=== PATIENT | male | born 1950 | race Caucasian/White ===

== ENCOUNTER 2021-11-26 10:40 | Inpatient (IN) | payer MEDICARE ==
[2021-11-26] VITALS (13 sets, daily range): BP systolic 99–139; BP diastolic 49–75
[~2021-11-26] VITALS: Ht 175.3 cm; Wt 59.4 kg
[2021-11-26] MEDS ORDERED: HEPARIN for IV BOLUS 10,000 UNIT/10 ML VIAL. ONE (10:44)
[2021-11-26] MEDS ORDERED: fentaNYL PF VIAL 100 MCG/2 ML VIAL ONE (10:44)
[2021-11-26] MEDS ORDERED: BIVALIRUDIN 250 MG VIAL. IV ONE ×2 (10:44→11:30)
[2021-11-26] MEDS ORDERED: MIDAZOLAM HCL/PF 2 MG/2 ML VIAL. ONE (10:44)
[2021-11-26] MEDS ORDERED: IODIXANOL 320 MG/ML 100 ML VIAL. ONE ×2 (11:02→11:32)
[2021-11-26] MEDS ORDERED: ATROPINE 1 MG/10 ML DISP.SYRINGE. ONE (11:13)
[2021-11-26] MEDS ORDERED: CLOPIDOGREL BISULFATE 75 MG TABLET PO ONE (11:30)
[2021-11-26] MEDS ORDERED: IODIXANOL 320 MG/ML 100 ML VIAL. IART ONE (11:30)
[2021-11-26] MEDS ORDERED: fentaNYL PF VIAL 100 MCG/2 ML VIAL IV ONE (11:30)
[2021-11-26] MEDS ORDERED: NITROGLYCERIN 200 MCG/2 ML SYRINGE FOR CATH/VASC LAB. IART ONE (11:30)
[2021-11-26] MEDS ORDERED: LIDOCAINE 1% Multi-Dose 20 ML VIAL. INJ ONE (11:30)
[2021-11-26] MEDS ORDERED: MIDAZOLAM HCL/PF 2 MG/2 ML VIAL. IV ONE (11:30)
[2021-11-26] MEDS ORDERED: LIDOCAINE 1% Multi-Dose 20 ML VIAL. ONE (11:32)
[2021-11-26] MEDS ORDERED: CLOPIDOGREL BISULFATE 75 MG TABLET ONE (11:34)
--- NOTE | 2021-11-26 11:42 | PDOC2 ---
CONSULT Date of Consult Date of Consult DATE: 11/26/21 TIME: 11:42 Reason for Consult Reason for Consult: Acute STEMI Referring Physician Referring Physician: Dr. Smith Identification/Chief Complaint Chief Complaint Chest pain Source Source: Chart review, Patient History of Present Illness Reason for Visit: 71-year-old male without any previous cardiac history initially presented to [facility] ED with chest pain starting about 45 minutes prior to arrival. He described the pain as pressure-like sensation radiating to back and left arm associated with diaphoresis and nausea. Upon further interrogation patient and his stated that the chest pain was happening intermittently for the last 3 days but has been continuous prior to arrival. He denied any orthopnea/PND, palpitations or syncope. EKG showed acute anterior wall ST elevation myocardial infarction. Code STEMI was activated and patient was transferred emergently to [facility] for cardiac catheterization and primary PCI/stent placement. Past Medical History Past Medical History Hypertension Hyperlipidemia GERD Osteoarthritis Glaucoma Past Surgical History Past Surgical History: Hernia Repair Family History Family History Hypertension Social History Social History Patient has 50 pack years of smoking history and denied any alcohol or drug use Current Medications Current Medications Current Medications Fentanyl Citrate (Fentanyl 2ml Vial) 100 mcg STK-MED ONCE .ROUTE ; Start 11/26/21 at 10:44; Stop 11/26/21 at 10:44; Status DC Midazolam HCl (Versed) 2 mg STK-MED ONCE .ROUTE ; Start 11/26/21 at 10:44; Stop 11/26/21 at 10:45; Status DC Bivalirudin (Angiomax) 250 mg STK-MED ONCE IV ; Start 11/26/21 at 10:44; Stop 11/26/21 at 10:45; Status DC Heparin Sodium (Porcine) (Heparin Sodium) 10,000 unit STK-MED ONCE .ROUTE ; Start 11/26/21 at 10:44; Stop 11/26/21 at 10:45; Status DC Iodixanol (Visipaque 320) 100 ml STK-MED ONCE .ROUTE ; Start 11/26/21 at 11:02; Stop 11/26/21 at 11:02; Status DC Atropine Sulfate (ATROPINE 1mg SYRINGE) 1 mg STK-MED ONCE .ROUTE ; Start 11/26/21 at 11:13; Stop 11/26/21 at 11:13; Status DC Heparin Sodium/ Sodium Chloride (HEPARIN for ARTERIAL LINE FLUSH) 1,000 unit 1X ONCE IART Last administered on 11/26/21at 11:29; Start 11/26/21 at 11:30; Stop 11/26/21 at 11:31; Status DC Midazolam HCl (Versed) 2 mg 1X ONCE IV Last administered on 11/26/21at 11:28; Start 11/26/21 at 11:30; Stop 11/26/21 at 11:31; Status DC Fentanyl Citrate (Fentanyl 2ml Vial) 100 mcg 1X ONCE IV Last administered on 11/26/21at 11:29; Start 11/26/21 at 11:30; Stop 11/26/21 at 11:32; Status DC Iodixanol (Visipaque 320) 100 ml 1X ONCE IART Last administered on 11/26/21at 11:27; Start 11/26/21 at 11:30; Stop 11/26/21 at 11:32; Status DC Bivalirudin (Angiomax) 250 mg 1X ONCE IV Last administered on 11/26/21at 11:28; Start 11/26/21 at 11:30; Stop 11/26/21 at 11:32; Status DC Clopidogrel Bisulfate (Plavix) 600 mg 1X ONCE PO ; Start 11/26/21 at 11:30; Stop 11/26/21 at 11:32; Status DC Lidocaine HCl (Lidocaine 1% 20ml Vial) 20 ml 1X ONCE INJ Last administered on 11/26/21at 11:29; Start 11/26/21 at 11:30; Stop 11/26/21 at 11:32; Status DC Nitroglycerin (Nitroglycerin) 200 mcg 1X ONCE IART ; Start 11/26/21 at 11:30; Stop 11/26/21 at 11:32; Status DC Info (CONTRAST GIVEN -- Rx MONITORING) 1 each PRN DAILY PRN MC SEE COMMENTS; Start 11/26/21 at 11:45; Stop 11/28/21 at 11:44 Iodixanol (Visipaque 320) 100 ml STK-MED ONCE .ROUTE ; Start 11/26/21 at 11:32; Stop 11/26/21 at 11:32; Status DC Lidocaine HCl (Lidocaine 1% 20ml Vial) 20 ml STK-MED ONCE .ROUTE ; Start 11/26/21 at 11:32; Stop 11/26/21 at 11:32; Status DC Heparin Sodium/ Sodium Chloride 500 ml @ As Directed STK-MED ONCE .ROUTE ; Start 11/26/21 at 11:32; Stop 11/26/21 at 11:32; Status DC Clopidogrel Bisulfate (Plavix) 75 mg STK-MED ONCE .ROUTE ; Start 11/26/21 at 11:34; Stop 11/26/21 at 11:35; Status DC Allergies Allergies: Coded Allergies: No Known Drug Allergies (Unverified , 11/26/21) ROS PSYCHOLOGICAL ROS: No: Hallucinations Eyes: No Loss of vision HEENT: No: Epistaxis ENDOCRINE: No: Palpitations Cardiovascular: yes Chest Pain Gastrointestinal: Yes Nausea Genitourinary: No Hematuria Neurological: No Seizures Skin: No Rash Physical Exam General: Alert, mild distress HEENT: Atraumatic Lungs: Clear to auscultation Heart: Regular rate Abdomen: Soft Extremities: No edema Psych/Mental Status: Mood NL Vitals VITALS Vital Signs Date Time Temp Pulse Resp B/P (MAP) Pulse Ox O2 Delivery O2 Flow Rate FiO2 11/26/21 11:32 45 24 96 Nasal Cannula 2.0 Assessment/Plan Assessment/Plan 1. Acute anterior wall ST elevation myocardial infarction with ongoing chest pain. Patient was given aspirin, heparin and taken emergently to cardiac [facility]. Coronary angiography showed critical 99% stenosis involving left anterior descending artery that was successfully treated with drug-eluting stent. He also has residual 70% bifurcation stenosis involving the distal RCA that will be intervened upon at a later date in a staged fashion in 2 weeks. LVEF on left ventriculography was 55% with mild hypokinesis of distal anterior wall and the apical wall. Patient was chest pain-free at the end of procedure. Start beta- blockers, Plavix and statins. We will refer patient for cardiac rehabilitation upon discharge. 2. Hypertension: Controlled 3. Hyperlipidemia: Continue statin therapy 4. Tobacco abuse: Advised on smoking cessation Thank you for your consultation Total critical care time spent evaluating and managing patient and discussing with family 45 minutes. GINA HAMILTON MD Nov 26, 2021 11:42
--- NOTE | 2021-11-26 11:42 | PDOC ---
MODERATE SEDATION ASSESSMENT RISKS/ALTERNATIVES Risks/Alternatives Risks and alternatives of this type of sedation and procedure discussed with: RISK/ALTERNATIVES: Patient H & P ON CHART H & P H & P on chart and reviewed for co-morbid conditions and appropriate labs. H&P ON CHART: Yes STATUS PREG STATUS ASSESSED: N/A MEDS/ALLERGIES REVIEWED Meds/Allergies Reviewed Medications and Allergies including time and route of recently administered narcotics and sedatives. MEDS/ALLERGIES REVIEWED: Yes ASA RATING ASA RATING: III AIRWAY ASSESSMENT Airway Assessment Airway patency, oral function limitations, presence of caps, crowns, dentures, partials, and ability to extend neck assessed. AIRWAY ASSESSMENT: Yes MALLAMPATI SCORE MALLAMPATI SCORE: II PRE-SEDATION ASSESSMENT PRE-SEDATION ASSESSMENT: Yes GINA HAMILTON MD Nov 26, 2021 11:42
[2021-11-26] MEDS ORDERED: ACETAMINOPHEN 325 MG TABLET. PO PRN (11:45)
[2021-11-26] MEDS: IV 1/2 NORMAL SALINE 1,000 ML IV SCH ×2 (11:45→23:25)
[2021-11-26] MEDS ORDERED: CONTRAST GIVEN. MC PRN (11:45)
[2021-11-26] MEDS ORDERED: NITROGLYCERIN SUBLINGUAL 0.4 MG BOTTLE OF 25. SL PRN (11:45)
--- NOTE | 2021-11-26 11:57 | CARD ---
MR#: [id number] Date of Study: 11/26/2021 Ordering Physician: GINA LAM, Referring Physician: GINA LAM, Tech: RT Alhaji(R) APPROVED REPORT Technologist: RT Alhaji(R) Nurse: Kavya Whiting RN Procedure(s) performed: 1. Left heart catheterization, selective coronary angiography and left ventr iculography 2. Successful PCI/drug-eluting stent placement to the left anterior descending artery fluoro time: 15.9min dose:[id number] contrast:201cc moderate sedation: 50 MINS INDICATION The indication(s) include : Acute anterior wall ST elevation myocardial infarction. [facility] Clinical Frailty Scale [facility] Clinical Frailty Scale: Moderately Frail Heart Failure Heart Failure: No CASE TECHNIQUE IV conscious sedation was used throughout procedure with appropriate monitoring and was performed in the presence of a registered nurse who was an independent trained observer other than the physician p erforming the procedure. During this case, Fluoroscopy and low osmolar contrast were used for imaging . Specimen(s) Removed: No Estimated Blood loss: 15 cc's. PROCEDURE NARRATIVE After explaining the risk, benefits and alternative options, informed consent was obtained from patie nt. Patient was brought to the cardiac [facility] and his right groin was prepped and draped in the us ual fashion. 20 cc of 2% lidocaine was infiltrated into the skin and subcutaneous tissues for local anesthesia. Arterial access was obtained in the right common femoral artery and a 6 [place] sheath wa s inserted. 6 [place] JL 4 and 6 and JR4 catheters were used to perform selective angiography of the left and right coronary arteries. 6 [place] pigtail catheter was used to perform left ventriculograph y. FINDINGS 1. Hemodynamics: Left ventricular end-diastolic pressure 18 mmHg. No pullback gradient across the a ortic valve. 2. Left ventriculography: Mild hypokinesis of the distal anterior wall and the apical wall with ejec tion fraction estimated at 55%. No significant mitral regurgitation seen. 3. Coronary angiography: a. The left main coronary artery arose from the left sinus of Valsalva, gave rise to the left anteri or descending and left circumflex arteries and did not show any significant stenosis. b. The left anterior descending artery showed critical 99% stenosis in the midsegment. c. The left circumflex artery did not show any significant stenosis. d. The right coronary artery was a large and dominant vessel arising from the right sinus of Valsalv a that showed 70% bifurcation lesion involving the distal segment. INTERVENTION The left main coronary artery was engaged with a 6 [place]ian XB 3.5 guide catheter. The stenosis in the mid segment of the left anterior descending artery was crossed with a 0.014 inch imgfave guid ewire. This was predilated with 2.5 x 12 mm Euphora balloon followed by 2.5 x 15 mm NC Euphora nonco mpliant balloon. The lesion was then successfully treated with a 2.5 x 18 mm resolute [place] drug-elut ing stent. Follow-up angiography showed resolution of the stenosis to 0% with CATHY-3 distal flow. P atient tolerated the procedure well. Hemostasis in the right groin was achieved using Angio-Seal. T here were no immediate complications. CATHY Flow CATHY Flow (Pre-Intervention): CATHY-1 CATHY Flow (Post-Intervention): CATHY-3 Conclusion 1. Two-vessel coronary artery disease involving the left anterior descending artery (culprit vessel) and right coronary artery as described above 2. Successful PCI/drug-eluting stent placement to the left anterior descending artery 3. Mild hypokinesis of the distal anterior wall and the apical wall with ejection fraction estimated at 55%. Recommendations 1. Aspirin 325 mg daily for 1 month followed by 81 mg daily 2. Plavix 75 mg daily 3. Cardiovascular risk factor modification Signed by : Gina Lam, Electronically Approved : 11/26/2021 11:56:46
[2021-11-26] MEDS: CLOPIDOGREL BISULFATE 75 MG TABLET PO SCH (12:00)
[2021-11-26] MEDS: CARVEDILOL 6.25 MG TABLET. PO SCH ×2 (12:00→17:00)
[2021-11-26] MEDS: ASPIRIN ENTERIC COATED 325 MG TABLET.DR. PO SCH (12:00)
[2021-11-26] MEDS ORDERED: NITROGLYCERIN 200 MCG/2 ML SYRINGE FOR CATH/VASC LAB. ONE (12:32)
[2021-11-26] MEDS: MORPHINE SULFATE 2 MG/ML INJ. IVP PRN ×4 (13:34→23:25)
--- NOTE | 2021-11-26 18:30 | PDOC1 ---
History and Physical Date of Admission Date of Admission DATE: 11/26/21 TIME: 18:27 History of Present Illness History of Present Illness MR. Caruso is a 71-year-old male with acute chest pain today, Went to [facility] ED with sudden and severe chest pain with pressure. He has had some pain for a few days but nothing like this, severe 10/10. He has GERD history and this was different. He was sweaty and nauseated and that is all imrpoved, he has soem pain across left chest at times now, 5/10 for short times. Taken to the laborer [facility] here, STEMI, PCI stent placed Dr. Patino. Past Medical History Cardiovascular: HTN GI: GERD Past Surgical History Past Surgical History: Hernia Repair Family History Family History: No Significant Social History ALCOHOL: rare Drugs: None Current Medications Current Medications Current Medications Fentanyl Citrate (Fentanyl 2ml Vial) 100 mcg STK-MED ONCE .ROUTE ; Start 11/26/21 at 10:44; Stop 11/26/21 at 10:44; Status DC Midazolam HCl (Versed) 2 mg STK-MED ONCE .ROUTE ; Start 11/26/21 at 10:44; Stop 11/26/21 at 10:45; Status DC Bivalirudin (Angiomax) 250 mg STK-MED ONCE IV ; Start 11/26/21 at 10:44; Stop 11/26/21 at 10:45; Status DC Heparin Sodium (Porcine) (Heparin Sodium) 10,000 unit STK-MED ONCE .ROUTE ; Start 11/26/21 at 10:44; Stop 11/26/21 at 10:45; Status DC Iodixanol (Visipaque 320) 100 ml STK-MED ONCE .ROUTE ; Start 11/26/21 at 11:02; Stop 11/26/21 at 11:02; Status DC Atropine Sulfate (ATROPINE 1mg SYRINGE) 1 mg STK-MED ONCE .ROUTE ; Start 11/26/21 at 11:13; Stop 11/26/21 at 11:13; Status DC Heparin Sodium/ Sodium Chloride (HEPARIN for ARTERIAL LINE FLUSH) 1,000 unit 1X ONCE IART Last administered on 11/26/21at 11:29; Start 11/26/21 at 11:30; Stop 11/26/21 at 11:31; Status DC Midazolam HCl (Versed) 2 mg 1X ONCE IV Last administered on 11/26/21at 11:28; Start 11/26/21 at 11:30; Stop 11/26/21 at 11:31; Status DC Fentanyl Citrate (Fentanyl 2ml Vial) 100 mcg 1X ONCE IV Last administered on 11/26/21at 11:29; Start 11/26/21 at 11:30; Stop 11/26/21 at 11:32; Status DC Iodixanol (Visipaque 320) 100 ml 1X ONCE IART Last administered on 11/26/21at 11:27; Start 11/26/21 at 11:30; Stop 11/26/21 at 11:32; Status DC Bivalirudin (Angiomax) 250 mg 1X ONCE IV Last administered on 11/26/21at 11:28; Start 11/26/21 at 11:30; Stop 11/26/21 at 11:32; Status DC Clopidogrel Bisulfate (Plavix) 600 mg 1X ONCE PO Last administered on 11/26/21at 11:30; Start 11/26/21 at 11:30; Stop 11/26/21 at 11:32; Status DC Lidocaine HCl (Lidocaine 1% 20ml Vial) 20 ml 1X ONCE INJ Last administered on 11/26/21at 11:29; Start 11/26/21 at 11:30; Stop 11/26/21 at 11:32; Status DC Nitroglycerin (Nitroglycerin) 200 mcg 1X ONCE IART Last administered on 11/26/21at 11:00; Start 11/26/21 at 11:30; Stop 11/26/21 at 11:32; Status DC Info (CONTRAST GIVEN -- Rx MONITORING) 1 each PRN DAILY PRN MC SEE COMMENTS; Start 11/26/21 at 11:45; Stop 11/28/21 at 11:44 Iodixanol (Visipaque 320) 100 ml STK-MED ONCE .ROUTE ; Start 11/26/21 at 11:32; Stop 11/26/21 at 11:32; Status DC Lidocaine HCl (Lidocaine 1% 20ml Vial) 20 ml STK-MED ONCE .ROUTE ; Start 11/26/21 at 11:32; Stop 11/26/21 at 11:32; Status DC Heparin Sodium/ Sodium Chloride 500 ml @ As Directed STK-MED ONCE .ROUTE ; Start 11/26/21 at 11:32; Stop 11/26/21 at 11:32; Status DC Clopidogrel Bisulfate (Plavix) 75 mg STK-MED ONCE .ROUTE ; Start 11/26/21 at 11:34; Stop 11/26/21 at 11:35; Status DC Sodium Chloride 1,000 ml @ 75 mls/hr [id number] IV ; Start 11/26/21 at 11:45 Aspirin (Ecotrin) 325 mg DAILYWBKFT PO ; Start 11/26/21 at 12:00 Clopidogrel Bisulfate (Plavix) 75 mg DAILYWBKFT PO ; Start 11/26/21 at 12:00 Carvedilol (Coreg) 6.25 mg BIDWMEALS PO ; Start 11/26/21 at 12:00 Atorvastatin Calcium (Lipitor) 40 mg QHS PO ; Start 11/26/21 at 21:00 Acetaminophen (Tylenol) 650 mg PRN Q6HRS PRN PO MILD PAIN / TEMP > 100.3'F Last administered on 11/26/21at 12:13; Start 11/26/21 at 11:45 Nitroglycerin (Nitrostat) 0.4 mg PRN Q5MIN PRN SL CHEST PAIN; Start 11/26/21 at 11:45 Nitroglycerin (Nitroglycerin) 200 mcg STK-MED ONCE .ROUTE ; Start 11/26/21 at 12:32; Stop 11/26/21 at 12:32; Status DC Morphine Sulfate (Morphine Sulfate) 2 mg PRN Q2HR PRN IVP MODERATE TO SEVERE PAIN Last administered on 11/26/21at 16:08; Start 11/26/21 at 13:15 Allergies Allergies: Coded Allergies: No Known Drug Allergies (Unverified , 11/26/21) ROS Review of System hard of hearing General: YES: Chills PSYCHOLOGICAL ROS: No: Anxiety, Behavioral Disorder, Concentration difficultie, Decreased libido, Depression, Disorientation, Hallucinations, Hostility, Irritablity, Memory difficulties, Mood Swings, Obsessive thoughts, Physical abuse, Sexual abuse, Sleep disturbances, Suicidal ideation, Other Eyes: No Blurry vision, No Decreased vision, No Double vision, No Dry eyes, No Excessive tearing, No Eye Pain, No Itchy Eyes, No Loss of vision, No Photo phobia, No Scotomata, No Uses contacts, No Uses glasses, No Other HEENT: No: Heacaches, Visual Changes, Hearing change, Nasal congestion, Nasal discharge, Oral lesions, Sinus pain, Sore Throat, Epistaxis, Sneezing, Snoring, Tinnitus, Vertigo, Vocal changes, Other Respiratory: No: Cough, Hemoptysis, Orthopnea, Pleuritic Pain, Shortness of breath, SOB with excertion, Sputum Changes, Stridor, Tachypnea, Wheezing, Other Cardiovascular: yes Chest Pain Gastrointestinal: No Nausea, No Vomiting, No Abdominal Pain, No Diarrhea, No Constipation, No Melena, No Hematochezia, No Other Genitourinary: No Dysuria, No Frequency, No Incontinence, No Hematuria, No Rete ntion, No Discharge, No Urgency, No Pain, No Flank Pain, No Other, No , No , No , No , No , No , No Musculoskeletal: No Gait Disturbance, No Joint Pain, No Joint Stiffness, No Joint Swelling, No Muscle Pain, No Muscular Weakness, No Pain In:, No Swelling In:, No Other Neurological: No Behavorial Changes, No Bowel/Bladder ControlChng, No Confusion, No Dizziness, No Gait Disturbance, No Headaches, No Impaired Coord/balance, No Memory Loss, No Numbness/Tingling, No Seizures, No Speech Problems, No Tremors, No Visual Changes, No Weakness, No Other Skin: No Dry Skin, No Eczema, No Hair Changes, No Lumps, No Mole Changes, No Mottling, No Nail Changes, No Pruritus, No Rash, No Skin Lesion Changes, No Other, No Acne Physical Exam General: Alert, Cooperative, No acute distress HEENT: Atraumatic, Mucous membr. moist/pink Lungs: Clear to auscultation, Normal air movement Heart: S1S2, no gallops, no murmurs Abdomen: Soft Extremities: No clubbing, No edema Skin: No rashes, No breakdown Neuro: Normal tone, Sensation intact Psych/Mental Status: Mood NL Vitals Vitals Vital Signs Date Time Temp Pulse Resp B/P (MAP) Pulse Ox O2 Delivery O2 Flow Rate FiO2 11/26/21 16:08 18 99 Room Air 11/26/21 14:00 48 117/56 (76) 11/26/21 11:45 97.5 97.5 11/26/21 11:32 2.0 VTE Prophylaxis Ordered VTE Prophylaxis Devices: No VTE Pharmacological Prophylaxi: Yes Assessment/Plan Assessment/Plan STEMI acute systolic CHF angina admit to ICU, CV tele full anywa Hypertension Hyperlipidemia GERD Osteoarthritis Glaucoma tobacco use disorder Justifications for Admission Other Justification SHANI RABAGO MD Nov 26, 2021 18:30
--- NOTE | 2021-11-26 18:30 | NUR ---
PT ADMITTED FROM [facility] AT 1145, GROIN CHECKED, PT ON BEDREST FOR ORDERED TIME. ASA, PLAVIX HELD D/T ALREADY BEING ADMINISTERED TODAY. COREG HELD D/T HR AND BLOOD PRESSURE UPON ARRIVAL.
[2021-11-26] MEDS ORDERED: NICOTINE 14MG PATCH. TD PRN (18:45)
[2021-11-26] MEDS: ATORVASTATIN CALCIUM 40 MG TABLET. PO SCH (21:00)
[2021-11-27] VITALS (15 sets, daily range): BP systolic 97–134; BP diastolic 55–73
[2021-11-27 06:00] LABS: ALBUMIN 3.4 g/dL (3.4-5.0); ALBUMIN/GLOBULIN RATIO 1.4 (1.0-1.7); CALCIUM 9.2 mg/dL (8.5-10.1); CREATININE 0.8 mg/dL (0.7-1.3); GFR 95.3; POTASSIUM 3.8 mmol/L (3.5-5.1); TOTAL BILIRUBIN 0.5 mg/dL (0.2-1.0); TOTAL PROTEIN 5.9 g/dL (6.4-8.2)
[2021-11-27 06:03] LABS: CHOLESTEROL/HDL RATIO 2.8
[2021-11-27 06:08] LABS: BASO % 0 % (0-3); EOS # 0.1 x10^3/uL (0.0-0.7); EOS % 1 % (0-3); HEMATOCRIT 41.1 % (39.0-53.0); HEMOGLOBIN 13.4 g/dL (13.0-17.5); LYMPH # 1.2 x10^3/uL (1.0-4.8); LYMPH % 12 % (24-48); MEAN CORPUSCULAR HEMOGLOBIN 30 pg (25-35); MEAN CORPUSCULAR HGB CONC 33 g/dL (31-37); MEAN CORPUSCULAR VOLUME 93 fL (79-100); MONO # 0.8 x10^3/uL (0.0-1.1); MONO % 9 % (0-9); NEUT # 7.6 x10^3/uL (1.8-7.7); NEUT % 78 % (31-73); PLATELET COUNT 116 x10^3/uL (140-400); RED BLOOD COUNT 4.41 x10^6/uL (4.30-5.70); RED CELL DISTRIBUTION WIDTH 14.2 % (11.5-14.5); WHITE BLOOD COUNT 9.7 x10^3/uL (4.0-11.0)
[2021-11-27] MEDS: CLOPIDOGREL BISULFATE 75 MG TABLET PO SCH (09:10)
[2021-11-27] MEDS: ASPIRIN ENTERIC COATED 325 MG TABLET.DR. PO SCH (09:10)
[2021-11-27] MEDS: CARVEDILOL 6.25 MG TABLET. PO SCH ×2 (09:11→20:00)
--- NOTE | 2021-11-27 09:15 | CARD ---
MR#: [id number] Date of Study: 11/26/2021 Ordering Physician: GINA LAM, Referring Physician: Yesenia HAMILTON: Myron Pruett [facility] APPROVED REPORT EXAM: Two-dimensional and M-mode echocardiogram with Doppler and color Doppler. Other Information Quality : FairHR: 48bpm Rhythm : Bradycardia INDICATION Non STEMI RISK FACTORS Hypertension Hyperlipidemia Smoking 2D DIMENSIONS Left Atrium(2D)4.5 (1.6-4.0cm)IVSd0.8 (0.7-1.1cm) Aortic Root(2D)3.3 (2.0-3.7cm)LVDd4.3 (3.9-5.9cm) LVOT Diameter2.3 (1.8-2.4cm)PWd0.8 (0.7-1.1cm) LA Rbjpzm72 (18-58mL)LVDs2.0 (2.5-4.0cm) FS (%) 53.0 %SV71.5 ml LVEF(%)84.2 (>50%) Aortic Valve AoV Peak Zi.118.9cm/sAoV VTI27.7cm AO Peak GR.5.7mmHgLVOT Peak Zi.113.8cm/s AO Mean GR.3mmHgAVA (VMAX)4.07cm2 Mitral Valve MV E Bttijbms69.1cm/sMV DECEL [id number] MV A Ohjpsauz90.5cm/sE/A Ratio1.9 Pulmonary Valve PV Peak Zuwmrdlw01.3cm/s Tricuspid Valve TR P. Tlevewkc876ay/sTR Peak Gr.26mmHg Pulmonary Vein S1 Kaglmpfj06.2cm/sD2 Zbpkoqtd40.9cm/s LEFT VENTRICLE The left ventricle is normal size. There is normal left ventricular wall thickness. Hypokinesis of mi d to distal anteroseptal wall and apical wall. The ejection fraction is estimated at 50 to 55%. Trans mitral Doppler flow pattern is Grade II-pseudonormal filling dynamics. No left ventricle thrombus not ed on this study. There is no ventricular septal defect visualized. There is no left ventricular aneu rysm. There is no mass noted in the left ventricle. RIGHT VENTRICLE The right ventricle is normal size. There is normal right ventricular wall thickness. The right ventr icular systolic function is normal. ATRIA The left atrium is mildly dilated. The right atrium size is normal. The interatrial septum is intact with no evidence for an atrial septal defect or patent foramen ovale as noted on 2-D or Doppler imagi ng. AORTIC VALVE The aortic valve is normal in structure and function. Doppler and Color Flow revealed no significant aortic regurgitation. There is no significant aortic valvular stenosis. There is no aortic valvular v egetation. MITRAL VALVE The mitral valve is normal in structure and function. There is no evidence of mitral valve prolapse. There is no mitral valve stenosis. Doppler and Color-flow revealed mild mitral regurgitation. TRICUSPID VALVE The tricuspid valve is normal in structure and function. Doppler and Color Flow revealed trace tricus pid regurgitation. There is no tricuspid valve prolapse or vegetation. There is no tricuspid valve st enosis. PULMONIC VALVE The pulmonary valve is normal in structure and function. Doppler and Color Flow revealed no pulmonic valvular regurgitation. There is no pulmonic valvular stenosis. GREAT VESSELS The aortic root is normal in size. The ascending aorta is normal in size. The pulmonary artery is nor mal. The IVC is not well seen. Limited sub xyphoid views. PERICARDIAL EFFUSION There is no pleural effusion. There is no evidence of significant pericardial effusion. Critical Notification Critical Value: No <Conclusion> Hypokinesis of mid to distal anteroseptal wall and apical wall. The ejection fraction is estimated at 50 to 55%. Transmitral Doppler flow pattern is Grade II-pseudonormal filling dynamics. Mild mitral regurgitation. Trace tricuspid regurgitation. There is no evidence of significant pericardial effusion. Signed by : Gina Lam, Electronically Approved : 11/27/2021 09:15:08
--- NOTE | 2021-11-27 11:20 | PDOC ---
[facility] PROGRESS NOTE Date of Service DOS: DATE: 11/27/21 TIME: 11:17 Chief Complaint Chief Complaint Resolving acute [place] Status post cardiac catheterization with stent to the LAD RCA occlusion awaiting further stenting in a couple weeks History of Present Illness History of Present Illness 11/27/2021 Patient seen and examined Discussed with RN Chart reviewed He had successful stenting of the LAD yesterday The plan is to do the right coronary in a couple of weeks Patient would like to go home I will put tentative discharge orders in if cardiology agrees Vitals/I&O Vitals/I&O: Vital Signs Date Time Temp Pulse Resp B/P (MAP) Pulse Ox O2 Delivery O2 Flow Rate FiO2 11/27/21 09:11 62 119/70 11/27/21 06:00 16 98 Nasal Cannula 2.0 11/27/21 04:00 97.8 97.8 I & O 11/26/21 11/26/21 11/27/21 15:00 23:00 07:00 Intake Total 1150 ml 1260 ml Output Total 850 ml 700 ml Balance 300 ml 560 ml Physical Exam General: Alert, Cooperative, No acute distress Heart: Regular rate Abdomen: Soft Extremities: No clubbing, No edema Skin: No rashes, No breakdown Labs Labs: Laboratory Tests Test 11/27/21 04:45 White Blood Count 9.7 x10^3/uL (4.0-11.0) Red Blood Count 4.41 x10^6/uL (4.30-5.70) Hemoglobin 13.4 g/dL (13.0-17.5) Hematocrit 41.1 % (39.0-53.0) Mean Corpuscular Volume 93 fL (79-100) Mean Corpuscular Hemoglobin 30 pg (25-35) Mean Corpuscular Hemoglobin Concent 33 g/dL (31-37) Red Cell Distribution Width 14.2 % (11.5-14.5) Platelet Count 116 x10^3/uL (140-400) Neutrophils (%) (Auto) 78 % (31-73) Lymphocytes (%) (Auto) 12 % (24-48) Monocytes (%) (Auto) 9 % (0-9) Eosinophils (%) (Auto) 1 % (0-3) Basophils (%) (Auto) 0 % (0-3) Neutrophils # (Auto) 7.6 x10^3/uL (1.8-7.7) Lymphocytes # (Auto) 1.2 x10^3/uL (1.0-4.8) Monocytes # (Auto) 0.8 x10^3/uL (0.0-1.1) Eosinophils # (Auto) 0.1 x10^3/uL (0.0-0.7) Basophils # (Auto) 0.0 x10^3/uL (0.0-0.2) Sodium Level 139 mmol/L (136-145) Potassium Level 3.8 mmol/L (3.5-5.1) Chloride Level 105 mmol/L (98-107) Carbon Dioxide Level 27 mmol/L (21-32) Anion Gap 7 (6-14) Blood Urea Nitrogen 19 mg/dL (8-26) Creatinine 0.8 mg/dL (0.7-1.3) Estimated GFR (Cockcroft-Gault) 95.3 BUN/Creatinine Ratio 24 (6-20) Glucose Level 105 mg/dL (70-99) Calcium Level 9.2 mg/dL (8.5-10.1) Total Bilirubin 0.5 mg/dL (0.2-1.0) Aspartate Amino Transf (AST/SGOT) 152 U/L (15-37) Alanine Aminotransferase (ALT/SGPT) 43 U/L (16-63) Alkaline Phosphatase 51 U/L (46-116) Total Protein 5.9 g/dL (6.4-8.2) Albumin 3.4 g/dL (3.4-5.0) Albumin/Globulin Ratio 1.4 (1.0-1.7) Triglycerides Level 48 mg/dL (0-150) Cholesterol Level 120 mg/dL (0-200) LDL Cholesterol, Calculated 67 mg/dL (0-100) VLDL Cholesterol, Calculated 10 mg/dL (0-40) Non-HDL Cholesterol Calculated 77 mg/dL (0-129) HDL Cholesterol 43 mg/dL (40-60) Cholesterol/HDL Ratio 2.8 Assessment and Plan Assessmemt and Plan Resolving acute VT Status post cardiac catheterization with stent to the LAD RCA occlusion awaiting further stenting in a couple weeks Plan Hope to discharge this afternoon if cardiology agrees For now continue cardiac cocktail Home meds DVT prophylaxis Full code He is going to return in 2 weeks for another stent to the RCA Comment Review of Relevant I have reviewed the following items jose (where applicable) has been applied. Medications: Current Medications Medications (Trade) Dose Ordered Sig/Leda Route PRN Reason Start Time Stop Time Status Last Admin Dose Admin Heparin Sodium/ Sodium Chloride (HEPARIN for ARTERIAL LINE FLUSH) 1,000 unit 1X ONCE IART 11/26/21 11:30 11/26/21 11:31 DC 11/26/21 11:29 Midazolam HCl (Versed) 2 mg 1X ONCE IV 11/26/21 11:30 11/26/21 11:31 DC 11/26/21 11:28 Fentanyl Citrate (Fentanyl 2ml Vial) 100 mcg 1X ONCE IV 11/26/21 11:30 11/26/21 11:32 DC 11/26/21 11:29 Iodixanol (Visipaque 320) 100 ml 1X ONCE IART 11/26/21 11:30 11/26/21 11:32 DC 11/26/21 11:27 Bivalirudin (Angiomax) 250 mg 1X ONCE IV 11/26/21 11:30 11/26/21 11:32 DC 11/26/21 11:28 Clopidogrel Bisulfate (Plavix) 600 mg 1X ONCE PO 11/26/21 11:30 11/26/21 11:32 DC 11/26/21 11:30 Lidocaine HCl (Lidocaine 1% 20ml Vial) 20 ml 1X ONCE INJ 11/26/21 11:30 11/26/21 11:32 DC 11/26/21 11:29 Nitroglycerin (Nitroglycerin) 200 mcg 1X ONCE IART 11/26/21 11:30 11/26/21 11:32 DC 11/26/21 11:00 Sodium Chloride 1,000 ml @ 75 mls/hr [id number] IV 11/26/21 11:45 11/26/21 23:25 Aspirin (Ecotrin) 325 mg DAILYWBKFT PO 11/26/21 12:00 11/27/21 09:10 Clopidogrel Bisulfate (Plavix) 75 mg DAILYWBKFT PO 11/26/21 12:00 11/27/21 09:10 Carvedilol (Coreg) 6.25 mg BIDWMEALS PO 11/26/21 12:00 11/27/21 09:11 Acetaminophen (Tylenol) 650 mg PRN Q6HRS PRN PO MILD PAIN / TEMP > 100.3'F 11/26/21 11:45 11/26/21 12:13 Morphine Sulfate (Morphine Sulfate) 2 mg PRN Q2HR PRN IVP MODERATE TO SEVERE PAIN 11/26/21 13:15 11/26/21 23:25 Justifications for Admission Other Justification CHIQUITA CORONA III DO Nov 27, 2021 11:20
[2021-11-27] MEDS ORDERED: CARV6.2511 PO (11:23)
[2021-11-27] MEDS ORDERED: NITR0.4T24 SL (11:23)
[2021-11-27] MEDS ORDERED: CLOP75TA PO (11:23)
[2021-11-27] MEDS ORDERED: ATOR40TA59 PO (11:23)
--- NOTE | 2021-11-27 11:33 | NUR ---
SS following for discharge planning. SS reviewed pt chart and discussed with pt RN. Pt is from home and is currently requiring oxygen at two liters nasal canula. Pt had heart cath on 11/26/2021. Cardiology following. SS will continue to follow for discharge planning.
[2021-11-27] MEDS: ATORVASTATIN CALCIUM 40 MG TABLET. PO SCH (21:11)
--- NOTE | 2021-11-27 22:54 | PDOC ---
PROGRESS NOTES Date of Service: DATE: 11/27/21 TIME: 22:54 Subjective Subjective Feeling better. Denied any chest pain. Objective Objective Vital Signs Date Time Temp Pulse Resp B/P (MAP) Pulse Ox O2 Delivery O2 Flow Rate FiO2 11/27/21 20:00 98.3 64 18 97/58 (71) 93 Room Air 98.3 11/27/21 12:00 2.0 Intake and Output 11/27/21 07:00 Intake Total 2410 ml Output Total 1850 ml Balance 560 ml Intake Oral 760 ml IV Total 1650 ml Output Urine Total 1850 ml Physical Exam Abdomen: Soft Heart: Regular rate Extremities: No clubbing, No edema General: Alert, Cooperative, No acute distress HEENT: Atraumatic, Mucous membr. moist/pink Lungs: Clear to auscultation, Normal air movement Neuro: Normal tone, Sensation intact Psych/Mental Status: Mood NL Skin: No rashes, No breakdown Assessment Assessment 1. Acute anterior wall ST elevation myocardial infarction. Coronary angiography showed critical 99% stenosis involving left anterior descending artery that was successfully treated with drug-eluting stent. He also has residual 70% bifurcation stenosis involving the distal RCA that will be interven ed upon at a later date in a staged fashion in 2 weeks. LVEF on left ventriculography was 55% with mild hypokinesis of distal anterior wall and the apical wall. Patient was chest pain-free at the end of procedure. Start beta- blockers, Plavix and statins. We will refer patient for cardiac rehabilitation upon discharge. 2. Hypertension: Controlled 3. Hyperlipidemia: Continue statin therapy 4. Tobacco abuse: Advised on smoking cessation Comment Review of Relevant I have reviewed the following items jose (where applicable) has been applied. Labs Laboratory Tests Test 11/27/21 04:45 White Blood Count 9.7 x10^3/uL (4.0-11.0) Red Blood Count 4.41 x10^6/uL (4.30-5.70) Hemoglobin 13.4 g/dL (13.0-17.5) Hematocrit 41.1 % (39.0-53.0) Mean Corpuscular Volume 93 fL (79-100) Mean Corpuscular Hemoglobin 30 pg (25-35) Mean Corpuscular Hemoglobin Concent 33 g/dL (31-37) Red Cell Distribution Width 14.2 % (11.5-14.5) Platelet Count 116 x10^3/uL (140-400) Neutrophils (%) (Auto) 78 % (31-73) Lymphocytes (%) (Auto) 12 % (24-48) Monocytes (%) (Auto) 9 % (0-9) Eosinophils (%) (Auto) 1 % (0-3) Basophils (%) (Auto) 0 % (0-3) Neutrophils # (Auto) 7.6 x10^3/uL (1.8-7.7) Lymphocytes # (Auto) 1.2 x10^3/uL (1.0-4.8) Monocytes # (Auto) 0.8 x10^3/uL (0.0-1.1) Eosinophils # (Auto) 0.1 x10^3/uL (0.0-0.7) Basophils # (Auto) 0.0 x10^3/uL (0.0-0.2) Sodium Level 139 mmol/L (136-145) Potassium Level 3.8 mmol/L (3.5-5.1) Chloride Level 105 mmol/L (98-107) Carbon Dioxide Level 27 mmol/L (21-32) Anion Gap 7 (6-14) Blood Urea Nitrogen 19 mg/dL (8-26) Creatinine 0.8 mg/dL (0.7-1.3) Estimated GFR (Cockcroft-Gault) 95.3 BUN/Creatinine Ratio 24 (6-20) Glucose Level 105 mg/dL (70-99) Calcium Level 9.2 mg/dL (8.5-10.1) Total Bilirubin 0.5 mg/dL (0.2-1.0) Aspartate Amino Transf (AST/SGOT) 152 U/L (15-37) Alanine Aminotransferase (ALT/SGPT) 43 U/L (16-63) Alkaline Phosphatase 51 U/L (46-116) Total Protein 5.9 g/dL (6.4-8.2) Albumin 3.4 g/dL (3.4-5.0) Albumin/Globulin Ratio 1.4 (1.0-1.7) Triglycerides Level 48 mg/dL (0-150) Cholesterol Level 120 mg/dL (0-200) LDL Cholesterol, Calculated 67 mg/dL (0-100) VLDL Cholesterol, Calculated 10 mg/dL (0-40) Non-HDL Cholesterol Calculated 77 mg/dL (0-129) HDL Cholesterol 43 mg/dL (40-60) Cholesterol/HDL Ratio 2.8 Vitals/I & O Vital Sign - Last 24 Hours 11/26/21 11/26/21 11/26/21 11/27/21 23:00 23:25 23:55 00:00 Pulse 50 Resp 18 16 18 B/P (MAP) 123/73 (90) Pulse Ox 99 99 98 O2 Delivery Nasal Cannula Nasal Cannula Nasal Cannula Nasal Cannula O2 Flow Rate 2.0 2.0 2.0 2.0 11/27/21 11/27/21 11/27/21 11/27/21 00:00 01:00 02:00 03:00 Temp 97.5 97.5 Pulse 50 48 48 48 Resp 18 16 16 16 B/P (MAP) 107/59 (75) 107/56 (73) 107/55 (72) 113/62 (79) Pulse Ox 99 98 99 99 O2 Delivery Nasal Cannula Nasal Cannula Nasal Cannula Nasal Cannula O2 Flow Rate 2.0 2.0 2.0 2.0 11/27/21 11/27/21 11/27/21 11/27/21 04:00 04:00 05:00 06:00 Temp 97.8 97.8 Pulse 49 50 62 Resp 16 16 16 B/P (MAP) 119/59 (79) 126/68 (87) 123/70 (87) Pulse Ox 100 100 98 O2 Delivery Nasal Cannula Nasal Cannula Nasal Cannula Nasal Cannula O2 Flow Rate 2.0 2.0 2.0 2.0 11/27/21 11/27/21 11/27/21 11/27/21 07:00 08:00 08:00 09:00 Temp 98.0 98.0 Pulse 60 54 62 Resp 20 18 18 B/P (MAP) 134/70 (91) 124/73 (90) 119/70 (86) Pulse Ox 99 100 98 O2 Delivery Nasal Cannula Nasal Cannula Nasal Cannula Nasal Cannula O2 Flow Rate 2.0 2.0 2.0 2.0 11/27/21 11/27/21 11/27/21 11/27/21 09:11 10:00 11:00 12:00 Pulse 62 60 70 Resp 18 22 B/P (MAP) 119/70 109/65 (80) 103/65 (78) Pulse Ox 96 96 O2 Delivery Nasal Cannula Nasal Cannula Nasal Cannula O2 Flow Rate 2.0 2.0 2.0 11/27/21 11/27/21 11/27/21 11/27/21 12:00 16:00 16:00 20:00 Temp 98.6 98.6 Pulse 62 66 Resp 20 B/P (MAP) 118/73 (88) 112/69 (83) Pulse Ox 96 O2 Delivery Room Air Room Air Room Air Room Air 11/27/21 11/27/21 20:00 20:00 Temp 98.3 98.3 Pulse 64 64 Resp 18 B/P (MAP) 97/58 97/58 (71) Pulse Ox 93 O2 Delivery Room Air Intake and Output 11/26/21 11/26/21 11/27/21 15:00 23:00 07:00 Intake Total 1150 ml 1260 ml Output Total 850 ml 1000 ml Balance 300 ml 260 ml GINA HAMILTON MD Nov 27, 2021 22:54
[2021-11-28] VITALS: BP 110/62
[2021-11-28 05:30] VITALS: BP 120/68
--- NOTE | 2021-11-28 07:16 | PDOC ---
PROGRESS NOTES Date of Service: DATE: 11/28/21 TIME: 07:16 Subjective Subjective Patient denied any chest pain or shortness of breath Objective Objective Vital Signs Date Time Temp Pulse Resp B/P (MAP) Pulse Ox O2 Delivery O2 Flow Rate FiO2 11/28/21 05:30 97.8 64 16 120/68 (85) 92 Room Air 97.8 11/27/21 12:00 2.0 Intake and Output 11/28/21 07:00 Intake Total 1940 ml Output Total 1800 ml Balance 140 ml Intake Oral 1940 ml Output Urine Total 1800 ml Physical Exam Abdomen: Soft Heart: Regular rate Extremities: No clubbing, No edema General: Alert, Cooperative, No acute distress HEENT: Atraumatic, Mucous membr. moist/pink Lungs: Clear to auscultation, Normal air movement Neuro: Normal tone, Sensation intact Psych/Mental Status: Mood NL Skin: No rashes, No breakdown Assessment Assessment 1. Acute anterior wall ST elevation myocardial infarction. Coronary angiography showed critical 99% stenosis involving left anterior descending artery that was successfully treated with drug-eluting stent. He also has residual 70% bifurcation stenosis involving the distal RCA that will be intervened upon at a later date in a staged fashion in 2 weeks. 2D echo showed hypokinesis of mid to distal anteroseptal wall and apical wall with EF estimated at 50 to 55% and diastolic dysfunction. Continue DAPT and refer patient for cardiac rehabilitation. 2. Hypertension: Controlled 3. Hyperlipidemia: Continue statin therapy 4. Tobacco abuse: Advised on smoking cessation Okay for DC from cardiac standpoint. Comment Review of Relevant I have reviewed the following items jose (where applicable) has been applied. Vitals/I & O Vital Sign - Last 24 Hours 11/27/21 11/27/21 11/27/21 11/27/21 08:00 08:00 09:00 09:11 Temp 98.0 98.0 Pulse 54 62 62 Resp 18 18 B/P (MAP) 124/73 (90) 119/70 (86) 119/70 Pulse Ox 100 98 O2 Delivery Nasal Cannula Nasal Cannula Nasal Cannula O2 Flow Rate 2.0 2.0 2.0 11/27/21 11/27/21 11/27/21 11/27/21 10:00 11:00 12:00 12:00 Temp 98.6 98.6 Pulse 60 70 62 Resp 18 22 20 B/P (MAP) 109/65 (80) 103/65 (78) 118/73 (88) Pulse Ox 96 96 96 O2 Delivery Nasal Cannula Nasal Cannula Nasal Cannula Room Air O2 Flow Rate 2.0 2.0 2.0 11/27/21 11/27/21 11/27/21 11/27/21 16:00 16:00 20:00 20:00 Pulse 66 64 B/P (MAP) 112/69 (83) 97/58 O2 Delivery Room Air Room Air Room Air 11/27/21 11/28/21 11/28/21 11/28/21 20:00 00:00 04:00 05:30 Temp 98.3 98.0 97.8 98.3 98.0 97.8 Pulse 64 55 47 64 Resp 18 16 16 B/P (MAP) 97/58 (71) 110/62 (78) 120/68 (85) Pulse Ox 93 95 92 O2 Delivery Room Air Room Air Room Air Intake and Output 11/27/21 11/27/21 11/28/21 15:00 23:00 07:00 Intake Total 700 ml 900 ml 340 ml Output Total 300 ml 650 ml 850 ml Balance 400 ml 250 ml -510 ml GINA HAMILTON MD Nov 28, 2021 07:16
[2021-11-28 08:00] VITALS: BP 119/72
[2021-11-28] MEDS: ASPIRIN ENTERIC COATED 325 MG TABLET.DR. PO SCH (08:32)
[2021-11-28] MEDS: CARVEDILOL 6.25 MG TABLET. PO SCH (08:32)
[2021-11-28] MEDS: CLOPIDOGREL BISULFATE 75 MG TABLET PO SCH (08:32)
--- NOTE | 2021-11-28 11:33 | PDOC ---
[facility] PROGRESS NOTE Date of Service DOS: DATE: 11/28/21 TIME: 11:33 Chief Complaint Chief Complaint Resolving acute [place] Status post cardiac catheterization with stent to the LAD RCA occlusion awaiting further stenting in a couple weeks History of Present Illness History of Present Illness 11/28/2021 Patient seen and examined Discussed with RN Chart reviewed He has a friend in the room she seems to be good support for him States he feels well wants to go home 11/27/2021 Patient seen and examined Discussed with RN Chart reviewed He had successful stenting of the LAD yesterday The plan is to do the right coronary in a couple of weeks Patient would like to go home I will put tentative discharge orders in if cardiology agrees Vitals/I&O Vitals/I&O: Vital Signs Date Time Temp Pulse Resp B/P (MAP) Pulse Ox O2 Delivery O2 Flow Rate FiO2 11/28/21 08:32 74 120/68 11/28/21 08:00 98.0 18 94 Room Air 98.0 11/27/21 12:00 2.0 I & O 11/27/21 11/27/21 11/28/21 15:00 23:00 07:00 Intake Total 700 ml 900 ml 340 ml Output Total 300 ml 650 ml 850 ml Balance 400 ml 250 ml -510 ml Physical Exam General: Alert, Cooperative, No acute distress Heart: Regular rate Abdomen: Soft Extremities: No clubbing, No edema Skin: No rashes, No breakdown Assessment and Plan Assessmemt and Plan Resolving acute [place] Status post cardiac catheterization with stent to the LAD RCA occlusion awaiting further stenting in a couple weeks Plan Hope to discharge later today if okay with cardiology For now continue cardiac cocktail Home meds DVT prophylaxis Full code He is going to return in 2 weeks for another stent to the RCA Comment Review of Relevant I have reviewed the following items jose (where applicable) has been applied. Justifications for Admission Other Justification CHIQUITA CORONA III DO Nov 28, 2021 11:33
--- NOTE | 2021-11-28 11:46 | DS ---
DATE OF DISCHARGE: 11/28/2021 ADMITTING DIAGNOSIS: Acute myocardial infarction. DISCHARGE DIAGNOSES: 1. Status post cardiac catheterization with stent to the left anterior descending. 2. He is awaiting another stent to the RCA in a couple of weeks. HOSPITAL COURSE: The patient is a pleasant middle-aged male who presented with chest pain, was noted to have EKG changes. We consulted Cardiology, was taken to the cardiac catheterization laboratory, where he underwent successful stent placement to the LAD. There is also an occlusion of the right coronary, but they would like to have the patient come back in a couple weeks to have that done. I saw and examined him today, wants to go home. We plan to discharge. DISPOSITION: Home. ACTIVITY: As tolerated. DIET: Low sodium. MEDICATIONS: Atorvastatin 40 a day, Coreg 6.25 b.i.d., Plavix 75 a day and p.r.n. nitro. TOTAL TIME: [address]: Gretchen TID: [id number]
[2021-11-28 12:00] VITALS: BP 129/75
--- NOTE | 2021-11-28 13:34 | NUR ---
Patient discharged at 1315 accompanied by two friends. Patient and friend were given post cardiac cath discharge instructions and educational information regarding new medications. Patient already takes 81 mg Aspirin daily, was told to increase that to 325 mg until cardiology says to switch. According to Dr. Lam, the cardiology office will call the patient to set up a follow up appointment. Medications sent electronically to patient's pharmacy, called the pharmacy to verify. Patient left with all belongings.
== END 2021-11-28 13:15 | disposition home or self-care (01) | DRG 246 ==
LOC: 1 WEST ICU 10:40
PROVIDERS: ADMIT Student in an Organized Health Care Education/Training Program; ATTEND Student in an Organized Health Care Education/Training Program
PROC: 027034Z Dilation of Coronary Artery, One Artery with Drug-eluting Intraluminal Device, Percutaneous Approach (ICD-10-PCS; principal; 2021-11-26)
PROC: B2111ZZ Fluoroscopy of Multiple Coronary Arteries using Low Osmolar Contrast (ICD-10-PCS; 2021-11-26)
PROC: B2151ZZ Fluoroscopy of Left Heart using Low Osmolar Contrast (ICD-10-PCS; 2021-11-26)
PROC: 4A023N7 Measurement of Cardiac Sampling and Pressure, Left Heart, Percutaneous Approach (ICD-10-PCS; 2021-11-26)
DX: I21.3 ST elevation (STEMI) myocardial infarction of unspecified site (principal); I50.21 Acute systolic (congestive) heart failure; E78.5 Hyperlipidemia, unspecified; F17.200 Nicotine dependence, unspecified, uncomplicated; H40.9 Unspecified glaucoma; I11.0 Hypertensive heart disease with heart failure; I25.119 Atherosclerotic heart disease of native coronary artery with unspecified angina pectoris; K21.9 Gastro-esophageal reflux disease without esophagitis; M19.90 Unspecified osteoarthritis, unspecified site; Z82.49 Family history of ischemic heart disease and other diseases of the circulatory system
CPT/HCPCS: 92941; 93458; G0269; 36415; 80053; 80061; 85025; 93306; 99152; 99153; C1725; C1874; C1894; J0583; J1644; J2250; J2270; J3010; J3490; Q9967; C8929; G0378